=== PATIENT | female | born 1965 | race Caucasian/White ===

== ENCOUNTER 2022-10-22 12:43 | Day surgery (SDC) | payer MEDICARE, SELFPAY ==
[2022-10-21 12:24] VITALS: BMI 24.7
[2022-10-22] VITALS (11 sets, daily range): BP systolic 98–133; BP diastolic 60–87; PULSE 67–87; RESP 16–18; TEMP 36.1–36.6; O2SAT 90–97
[2022-10-22] MEDS: sodium chloride 0.9% 1,000 ML 30 ML IV (10:07)
[2022-10-22] MEDS: midazolam 1 mg/mL INJ 2 mL 2 MG IVP ×2 (13:07→14:48)
--- NOTE | 2022-10-22 14:11 | ANES.PREANE2 ---
Pre-Anesthetic Assessment Height/Weight: Height 1.57 m Weight 61.235 kg Temp Pulse Resp BP Pulse Ox O2 Del Method O2 Flow Rate 97.7 F 87 16 101/70 97 2 10/22/22 09:53 10/22/22 09:53 10/22/22 09:53 10/22/22 09:53 10/22/22 09:53 10/22/22 09:53 10/22/22 09:53 Preop Diagnosis: Biliary dyskinesia Operation Date: 10/22/22 11:00 Proposed Procedures p lap phyllis [id number], K82.8(Not Applicable) - Bill Mock DO Familial anesthetic complications: none Was Beta Reg taken within 24 hours: N/A Was Clonidine taken within 24 hours: N/A Last intake: Intake Last Liquid Date 10/21/22 Last Liquid Time 22:00 Last Solid Date 10/21/22 Last Solid Time 22:00 Social Tobacco and No alcohol Exam alert, oriented x 3 and regular rate & rhythm Airway Submandibular: within normal limits Cervical ROM: within normal limits Mallampati: Class II Dentition: false Pulmonary Chronic Obstructive Pulmonary Disease Home O2 GI Gastroesophageal Reflux Disease Anesthetic Plan ASA status: 3 Anesthesia: General Medications/Allergies Home Medications Medication Instructions Recorded Confirmed Last Taken Type albuterol sulfate 2.5 mg/3 mL 2.5 mg inhalation TID 09/22/22 10/22/22 2 Days Ago History (0.083 %) solution for nebulization ~10/20/22 albuterol sulfate 90 mcg/actuation 2 puff inhalation DAILY 09/22/22 10/22/22 10/22/22 History aerosol inhaler azithromycin 250 mg tablet 1 tab PO DAILY 09/22/22 10/22/22 10/21/22 History benzonatate 100 mg capsule 100 mg PO TID PRN Cough 09/22/22 10/22/22 1 Month Ago History ~09/22/22 cetirizine 10 mg tablet 10 mg PO DAILY PRN allergies 09/22/22 10/22/22 2 Days Ago History ~10/20/22 duloxetine 30 mg capsule,delayed 30 mg PO DAILY 09/22/22 10/22/22 2 Weeks Ago History release (Cymbalta) ~10/08/22 fluticasone fur. 100 mcg-umeclid 1 inh inhalation DAILY 09/22/22 10/22/2210/22/23 History 62.5 mcg-vilant 25 mcg inhalat.powder (Trelegy Ellipta) calcium carbonate 600 mg-vitamin 1 tab PO BID 10/22/22 10/22/22 3 Days Ago History D3 5 mcg (200 unit) tablet ~10/19/22 Allergies Allergy/AdvReac Type Severity Reaction Status Date / Time tetracycline Allergy ALGY-Anaphy Verified 10/22/22 10:08 laxis Current Medications Generic Name Dose Route Start Last Admin Trade Name Freq PRN Reason Stop Dose Admin Sodium Chloride 1,000 mls @ 30 mls/hr 10/22/22 10:00 10/22/22 10:07 Sodium Chloride 0.9% IV 10/23/22 09:59 30 mls/hr .Q24H CITLALI Administration Midazolam HCl 2 mg 10/22/22 09:48 10/22/22 13:07 Midazolam 1 Mg/Ml Inj 2 Ml IVP 2 mg ONCE PRN Administration Preop Anxiety PFSH Anesthesia Medical History Anemia COPD (chronic obstructive pulmonary disease) Hypertension Hypothyroidism Surgical History History of lumpectomy History of tonsillectomy and adenoidectomy History of tubal ligation Data Anesthesia Cardiac Studies: No Data to Display
--- NOTE | 2022-10-22 14:53 | W.PM.OPSUD ---
Surgery/Procedure H&P Update DATE OF PROCEDURE: October 22, 2022 DATE H&P PERFORMED: 09/22/22 H&P UPDATE INFORMATION: I have reviewed H&P completed within last 30 days, I have examined patient prior to procedure and No changes to prior documentation PREOP DIAGNOSIS: Biliary dyskinesia PLANNED PROCEDURE: Operation Date: 10/22/22 11:00 Proposed Procedures p lap phyllis [id number], K82.8(Not Applicable) - Bill Mock DO
[2022-10-22] MEDS: ceFAZolin 2,000 MG in sodium chloride 0.9% (plus) 50 ML 100 MG IV (14:57)
[2022-10-22] MEDS: lidocaine-epi 2% 20 mL INJ INJECTION (15:14)
--- NOTE | 2022-10-22 16:22 | P.OP_ITS ---
Operative Report Date of procedure: October 22, 2022 Pre-op diagnosis: Preop Diagnosis Biliary dyskinesia Post-op diagnosis: same Procedure done: Laparoscopic cholecystectomy Implants: Surgicel x2 Specimens removed/disposition: Gallbladder Surgeon: Dr. Bill Mock DO Anesthesia: General Estimated blood loss (mL): 50 Complications: None apparent Brief History: This is a 57-year-old female who presented to my office and was diagnosed with biliary dyskinesia. Laparoscopic cholecystectomy was indicated. The risks and benefits were explained and documented. Procedure: Patient was wheeled into the operative room and placed on the OR table in a supine position. Abdomen was inspected prepped and draped in usual sterile fashion. Time-out was performed and all present were in agreement. A 15 blade scalp was used to make a stab incision in the left upper quadrant and intra- abdominal insufflation was achieved using a Veress needle. After localizing the tissue incisions were made and a 5 millimeter trocar was placed into the umbilicus as well as 2 in the right upper quadrant. A 12 millimeter trocar was placed in the epigastrium. Gallbladder was grasped and elevated. The triangle of Calot was carefully dissected using blunt dissection and electrocautery until the triangle of Calot clearly identified. The cystic duct was clipped proximally and double clipped distally. The duct was then ligated proximally. The cystic artery was doubly clipped and ligated. The gallbladder was then removed from the liver bed using electrocautery. There was a large venous sinus in the liver that began bleeding. 3 clips were placed but bleeding continued. I used extensive Bovie cautery to further control bleeding. The gallbladder was removed from the abdomen using an Endo-Catch bag through the epigastric incision. The liver bed was inspected and there was still bleeding from the previous area. Surgicel was placed over this area x2. Further electrocautery was performed until there was hemostasis. Surgicel was replaced over the area and left there. The abdomen was irrigated and suctioned. All ports removed. Skin was washed and dried. Incisions were closed with 4-0 Monocryl in a subcuticular interrupted fashion. Skin glue was applied. Patient tolerated the procedure well.
[2022-10-22] MEDS: fentaNYL 50 mcg/mL INJ 2mL IVP (16:35)
--- NOTE | 2022-10-22 17:21 | ANE.PACU2 ---
Inpatient post-anesthesia follow up: Airway intact: Yes Vital signs: Temperature 98 F Pulse Rate 75 Respiratory Rate 16 Blood Pressure 101/67 Pulse Oximetry 93 Oxygen Delivery Me thod Nasal Cannula Oxygen Flow Rate 2 Fraction of Inspir ed Oxygen Hydration adequate: Yes Nausea and vomiting: No Pain level: 3 Mental status: Baseline
[2022-10-22] MEDS: HYDROmorphone 1 mg/mL INJ 1 mL 0.5 MG IVP (17:29)
[2022-10-22] MEDS: HYDROcodone-acetaminophen 10-325 mg Tablet 1 TAB PO (17:41)
== END 2022-10-22 18:00 | disposition home or self-care (01) ==
PROVIDERS: PCP Family Medicine; Visit Provider Surgery
PROC: 0FT44ZZ Resection of Gallbladder, Percutaneous Endoscopic Approach (ICD-10-PCS; CPT 47562; principal; 2022-10-22 10:50)
DX: K82.8 Other specified diseases of gallbladder (principal); J44.9 Chronic obstructive pulmonary disease, unspecified; Z99.81 Dependence on supplemental oxygen; K21.9 Gastro-esophageal reflux disease without esophagitis; Z80.0 Family history of malignant neoplasm of digestive organs
CPT/HCPCS: 47562; 88304; J0690; J1100; J1170; J1885; J2250; J2405; J2704; J2710; J3010; J3490; J7030

== ENCOUNTER → 2022-11-03 10:57 | Outpatient (BNVA) | payer MEDICARE, SELFPAY | PROVIDERS: PCP Family Medicine; Visit Provider Surgery | DX: Z98.890 Other specified postprocedural states (principal); Z90.49 Acquired absence of other specified parts of digestive tract | CPT/HCPCS: 99024 ==

== ENCOUNTER 2022-11-25 06:57 | Day surgery (SDC) | payer MEDICARE, SELFPAY ==
[2022-11-09 07:59] VITALS: BMI 23.0
[2022-11-25 07:18] VITALS: BP 110/80; PULSE 100; RESP 20; TEMP 36.1; O2SAT 96
[2022-11-25] MEDS: sodium chloride 0.9% 1,000 ML 30 ML IV (07:26)
--- NOTE | 2022-11-25 07:48 | ANES.PREANE2 ---
Pre-Anesthetic Assessment Height/Weight: Height 1.6 m Weight 58.967 kg Temp Pulse Resp BP Pulse Ox O2 Del Method O2 Flow Rate 97 F L 100 20 H 110/80 96 Nasal Cannula 2 11/25/22 07:18 11/25/22 07:18 11/25/22 07:18 11/25/22 07:18 11/25/22 07:18 11/25/22 07:18 11/25/22 07:18 Operation Date: 11/25/22 08:30 Proposed Procedures p EGD(Not Applicable) [place] [id number] EGD 23102 Colon Z12.11 Screening Colonoscopy R21.9 GERD(Not Applicable) - Bill Mock DO Familial anesthetic complications: PONV Was Beta Reg taken within 24 hours: N/A Was Clonidine taken within 24 hours: N/A Last intake: Intake Last Liquid Date 11/24/22 Last Liquid Time 22:00 Last Solid Date 11/23/22 Last Solid Time 18:00 Social Tobacco (1ppd) and No alcohol Exam alert and oriented x 3 Airway Submandibular: within normal limits Cervical ROM: within normal limits Mallampati: Class II Dentition: false History/ROS No significant history except as noted Pulmonary Chronic Obstructive Pulmonary Disease (2L NC at home) CV/HEM None reported None reported Hepatic None reported GI Gastroesophageal Reflux Disease Metabolic None reported Musc/skel None reported Neuropsych None reported Anesthetic Plan ASA status: 3 Anesthesia: Anesthesia Evaluation and MAC Medications/Allergies Home Medications Medication Instructions Recorded Confirmed Last Taken Type albuterol sulfate 2.5 mg/3 mL 2.5 mg inhalation TID 09/22/22 11/23/22 11/11/22 History (0.083 %) solution for nebulization albuterol sulfate 90 mcg/actuation 2 puff inhalation DAILY 09/22/22 11/23/22 11/25/22 05:30 History aerosol inhaler azithromycin 250 mg tablet 1 tab PO DAILY 09/22/22 11/23/22 11/24/22 History benzonatate 100 mg capsule 100 mg PO TID PRN Cough 09/22/22 11/23/22 11/24/22 History cetirizine 10 mg tablet 10 mg PO DAILY PRN allergies 09/22/22 11/23/22 11/24/22 History duloxetine 30 mg capsule,delayed 30 mg PO DAILY 09/22/22 11/23/22 11/24/22 History release (Cymbalta) fluticasone fur. 100 mcg-umeclid 1 inh inhalation DAILY 09/22/22 11/23/22 11/25/22 05:30 History 62.5 mcg-vilant 25 mcg inhalat.powder (Trelegy Ellipta) calcium carbonate 600 mg-vitamin 1 tab PO BID 10/22/22 11/23/22 11/23/22 History D3 5 mcg (200 unit) tablet docusate sodium 100 mg capsule 100 mg PO BID #14 caps 10/22/22 11/23/22 11/24/22 Rx (DOK) hydrocodone 10 mg-acetaminophen 1 tab PO Q6H PRN pain 5 days #20 11/03/22 11/23/22 11/11/22 Rx 325 mg tablet tabs Allergies Allergy/AdvReac Type Severity Reaction Status Date / Time tetracycline Allergy ALGY-Anaphy Verified 11/23/22 08:48 laxis Current Medications Generic Name Dose Route Start Last Admin Trade Name Freq PRN Reason Stop Dose Admin Sodium Chloride 1,000 mls @ 30 mls/hr 11/25/22 07:15 11/25/22 07:26 Sodium Chloride 0.9% IV 11/26/22 07:14 30 mls/hr .Q24H CITLALI Administration PFSH Anesthesia Medical History Anemia COPD (chronic obstructive pulmonary disease) Hypertension Hypothyroidism Surgical History History of laparoscopic cholecystectomy History of lumpectomy History of tonsillectomy and adenoidectomy History of tubal ligation Data Anesthesia Cardiac Studies: No Data to Display
--- NOTE | 2022-11-25 07:57 | PM.HP ---
Providers/Chief Complaint Primary Care Provider: Jena Adamson Chief Complaint: Z12.11 R21.9 EGD and colon History of Present Illness Ekaterina Doe is a 57 year old female here for EGD and colonoscopy Medications/Allergies Home Medications Medication Instructions Recorded Confirmed Last Taken Type albuterol sulfate 2.5 mg/3 mL 2.5 mg inhalation TID 09/22/22 11/23/22 11/11/22 History (0.083 %) solution for nebulization albuterol sulfate 90 mcg/actuation 2 puff inhalation DAILY 09/22/22 11/23/22 11/25/22 05:30 History aerosol inhaler azithromycin 250 mg tablet 1 tab PO DAILY 09/22/22 11/23/22 11/24/22 History benzonatate 100 mg capsule 100 mg PO TID PRN Cough 09/22/22 11/23/22 11/24/22 History cetirizine 10 mg tablet 10 mg PO DAILY PRN allergies 09/22/22 11/23/22 11/24/22 History duloxetine 30 mg capsule,delayed 30 mg PO DAILY 09/22/22 11/23/22 11/24/22 History release (Cymbalta) fluticasone fur. 100 mcg-umeclid 1 inh inhalation DAILY 09/22/22 11/23/22 11/25/22 05:30 History 62.5 mcg-vilant 25 mcg inhalat.powder (Trelegy Ellipta) calcium carbonate 600 mg-vitamin 1 tab PO BID 10/22/22 11/23/22 11/23/22 History D3 5 mcg (200 unit) tablet docusate sodium 100 mg capsule 100 mg PO BID #14 caps 10/22/22 11/23/22 11/24/22 Rx (DOK) hydrocodone 10 mg-acetaminophen 1 tab PO Q6H PRN pain 5 days #20 11/03/22 11/23/22 11/11/22 Rx 325 mg tablet tabs Allergies Allergy/AdvReac Type Severity Reaction Status Date / Time tetracycline Allergy ALGY-Anaphy Verified 11/23/22 08:48 laxis PFSH Acute PFSH: Medical History Anemia COPD (chronic obstructive pulmonary disease) Hypertension Hypothyroidism Surgical History History of laparoscopic cholecystectomy History of lumpectomy History of tonsillectomy and adenoidectomy History of tubal ligation Vitals/I&O/Wt Last Vital Signs Temp 97 F L 11/25/22 07:18 Pulse 100 11/25/22 07:18 Resp 20 H 11/25/22 07:18 BP 110/80 11/25/22 07:18 Pulse Ox 96 11/25/22 07:18 O2 Del Method Nasal Cannula 11/25/22 07:18 O2 Flow Rate 2 11/25/22 07:18 A&P Assessment and plan (1) Colon cancer screening: (2) GERD (gastroesophageal reflux disease): Plan EGD Screening colonoscopy The risks and benefits of the procedure, including bleeding, infection, intestinal perforation requiring surgery, missed lesion were explained to the patient. The patient is understanding of the risks and wishes to proceed. Attestations Medical Necessity Statement*: Home Coding Level of Care Code Acute Code for Chg Fwd Diagnoses Colon cancer screening Z12.11 GERD (gastroesophageal reflux disease) K21.9
[2022-11-25 08:28] VITALS: BP 89/61; PULSE 71; RESP 20; TEMP 36.3; O2SAT 97
--- NOTE | 2022-11-25 08:39 | ANE.PACU2 ---
Inpatient post-anesthesia follow up: Airway intact: Yes Vital signs: Temperature 97.3 F Pulse Rate 71 Respiratory Rate 20 Blood Pressure 89/61 Pulse Oximetry 97 Oxygen Delivery Me thod Nasal Cannula Oxygen Flow Rate 2 Fraction of Inspir ed Oxygen Hydration adequate: Yes Nausea and vomiting: No Pain level: 1 Mental status: Baseline
[2022-11-25 08:41] VITALS: BP 94/67; PULSE 76; RESP 16; O2SAT 98
== END 2022-11-25 09:02 | disposition home or self-care (01) ==
PROVIDERS: PCP Family Medicine; Visit Provider Surgery
PROC: 0DJ08ZZ Inspection of Upper Intestinal Tract, Via Natural or Artificial Opening Endoscopic (ICD-10-PCS; CPT 43235; principal; 2022-11-25 08:30)
PROC: 0DJD8ZZ Inspection of Lower Intestinal Tract, Via Natural or Artificial Opening Endoscopic (ICD-10-PCS; CPT 45378; 2022-11-25 08:30)
DX: Z12.11 Encounter for screening for malignant neoplasm of colon (principal); K29.50 Unspecified chronic gastritis without bleeding; F17.210 Nicotine dependence, cigarettes, uncomplicated; J44.9 Chronic obstructive pulmonary disease, unspecified; K21.9 Gastro-esophageal reflux disease without esophagitis; I10 Essential (primary) hypertension; E03.9 Hypothyroidism, unspecified; Z79.891 Long term (current) use of opiate analgesic; K44.9 Diaphragmatic hernia without obstruction or gangrene; Z80.0 Family history of malignant neoplasm of digestive organs; D12.8 Benign neoplasm of rectum
CPT/HCPCS: 43239; 45385; 88305; 88342; J2704; J7030

== ENCOUNTER 2022-12-20 20:55 | Emergency (ER) | payer MEDICARE, SELFPAY ==
[2022-12-20 20:59] VITALS: BP 118/70; PULSE 108; RESP 16; TEMP 36.7; O2SAT 88; BMI 23.0
--- NOTE | 2022-12-20 21:05 | ED_ITS ---
HPI - SOB/Dyspnea General: Chief Complaint: Shortness of Breath/Dyspnea Stated Complaint: SOB Time Seen by Provider: 12/20/22 21:05 History of Present Illness: HPI Narrative: Ms. Doe is a 57-year-old lady with history of COPD and chronic hypoxic respiratory failure on 4 L at baseline. Reports 1 week history of increased shortness of breath, baseline cough, denies fevers. She has had oxygen saturations in the 80s despite turning up her oxygen to 4 L. Additionally she has had some chest discomfort which is tightness and sharp pain around the middl e of her chest with radiation to the back. Course is worsening. Intensity is moderate to severe. No other specific changes in health, exacerbating, or alleviating factors identified. Pertinent past history: COPD Onset (ago): week(s) Timing: progressively worsening Severity: moderate Exacerbating factors: lying flat and exertion Known history of: COPD Associated symptoms: Reports chest pain and cough Review of Systems General: Reports: 10 or more systems reviewed and unremarkable except in HPI and below Card: Reports: chest pain PFSH ED PFSH: Medical History Anemia COPD (chronic obstructive pulmonary disease) Hypertension Hypothyroidism Surgical History History of laparoscopic cholecystectomy History of lumpectomy History of tonsillectomy and adenoidectomy History of tubal ligation Physical Exam Const: COMMON NORMALS: alert GENERAL APPEARANCE: cooperative and well developed HENMT: COMMON NORMALS: normocephalic and atraumatic HEAD & SCALP: normocephalic and atraumatic Eye: COMMON NORMALS: conjunctivae normal CONJUNCTIVA: Yes conjunctivae normal SCLERA: sclerae normal Neck/C-Spine: COMMON NORMALS: supple GENERAL: Yes trachea midline Resp: EFFORT & INSPECTION: Yes able to speak in complete sentences AUSCULTATION: diminished lung sounds on the left Cardio: COMMON NORMALS: regular rhythm RATE: tachycardic RHYTHM: regular rhythm GI: COMMON NORMALS: Soft to palpation PALPATION: Yes Soft to palpation and No Tenderness to palpation present (GI) Extremity: GENERAL: Yes normal exam except as noted and No edema Neuro: COMMON NORMALS: moves all extremities SENSORIUM/ORIENTATION: Yes alert and No Orientation impaired Psych: COMMON NORMALS: mental status grossly normal and Normal thought process present THOUGHT PROCESS: Normal thought process present Course Vital Signs: Vital signs: Vital Signs Temperature 98.0 F 12/20/22 20:59 Pulse Rate 63 12/21/22 03:03 Respiratory Rate 23 H 12/21/22 03:03 Blood Pressure 109/77 12/21/22 03:03 Pulse Oximetry 96 12/21/22 03:03 Oxygen Delivery Me thod Nasal Cannula 12/21/22 02:05 Oxygen Flow Rate 4 12/21/22 02:05 MDM - SOB/Dyspnea Medical Decision Making 57-year-old lady with history of COPD presenting to the emergency department for worsening respiratory status. Patient now requiring 4 L oxygen as opposed to baseline of rare overnight use. She does have significantly diminished lung sounds on the left though no evidence of pneumothorax on initial clinical exam. EKG demonstrates sinus rhythm with normal axis and intervals, no STEMI. Labs notable for no leukocytosis, mild hemoconcentration, no significant metabolic abnormalities. Initial lactic acid was elevated however repeat was normal without volume resuscitation which leads me to believe that this was erroneous. Patient's clinical history and exam is not consistent with sepsis. Rapid COVID testing is negative. BNP is minimally elevated. Chest x-ray demonstrates significant left-sided chest abnormalities. My interpretation appearance does not fit with large effusion and therefore requires further delineation via CT imaging. CT demonstrates significant left- sided volume loss with atelectasis versus infiltrate and small pleural effusion. There does appear to be evidence of endobronchial blockage or narrowing which requires further evaluation. We do not have pulmonology available for bronchoscopy. Patient therefore requires transfer. Antibiotics ordered. Most likely etiology of patient's symptoms is multifactorial including exacerbation of COPD, likely mucous plugging, effusion, possible infection. The results of ED evaluation were discussed with the patient including plan for transfer due to requirement for level of care not available if discharged to prevent significant worsening/deterioration. Patient agreeable with plan. Discussed with hospitalist service at [facility] in [place] who was agreeable to admit patient. [facility] did not have beds available. I recommended and offered patient EMS transfer which she declined in favor of transfer via private vehicle. Medical Records I reviewed the patient's medical records. Lab Data I reviewed the patient's lab results. 12/20/22 21:48 12/20/22 23:45 Labs/Radiology: Radiology Impressions Chest X-Ray 12/20/22 21:14 IMPRESSION: Moderate to large left pleural effusion with left lung volume loss and airspace opacification, chest CT could further characterize this. Chest CTA 12/20/22 22:07 IMPRESSION: 1. Left lung volume loss with a small left pleural effusion and diffuse left lung atelectasis versus infiltrate. 2. Left proximal bronchial opacification may reflect mucoid impaction, consider correlation with bronchoscopy. 3. Scattered prominent mediastinal lymph nodes measuring up to 11 mm, nonspecific. 4. Several low-density hepatic lesions suggestive of cysts. 5. Fluid density structure in the gallbladder fossa suggestive of the presence of a gallbladder, however surgical clips are also seen in this region suggesting there may have been a cholecystectomy with a seroma in the gallbladder fossa, please correlate with history. 6. Small hiatal hernia. 7. Emphysematous changes. 8. Right kidney cyst, negative for follow-up advised. 9. Negative for pulmonary embolus. COMMENTS: In the absence of a history or active diagnosis of lung cancer, it is recommended that this patient with emphysema be evaluated for enrollment in a low dose CT lung cancer screening program. Laboratory Results WBC 8.3 10^3/uL (4.0-10.0) 12/20/22 21:48 RBC 4.89 10^6/uL (4.1-5.3) 12/20/22 21:48 Hgb 15.5 g/dL (11.5-15.3) H 12/20/22 21:48 Hct 47.9 % (37.0-47.0) H 12/20/22 21:48 MCV 98.0 fl (81-99) 12/20/22 21:48 MCH 31.7 pg (28.0-34.0) 12/20/22 21:48 MCHC 32.4 g/dL (30.0-36.0) 12/20/22 21:48 RDW 12.6 % (12.1-15.1) 12/20/22 21:48 Plt Count 243 10^3/cmm (130-400) 12/20/22 21:48 MPV 9.7 fL (7.4-10.4) 12/20/22 21:48 Neut % (Auto) 84.6 % 12/20/22 21:48 Lymph % (Auto) 9.1 % 12/20/22 21:48 [place] % (Auto) 5.6 % 12/20/22 21:48 Eos % (Auto) 0.0 % 12/20/22 21:48 Baso % (Auto) 0.2 % 12/20/22 21:48 Neut # (Auto) 7.03 10^3/uL (1.8-7.7) 12/20/22 21:48 Lymph # (Auto) 0.8 10^3/uL (0.8-4.8) 12/20/22 21:48 [place] # (Auto) 0.5 10^3/uL (0.2-0.9) 12/20/22 21:48 Eos # (Auto) 0.0 10^3/uL (0.0-0.8) 12/20/22 21:48 Baso # (Auto) 0.0 10^3/uL (0.0-0.1) 12/20/22 21:48 Nucleated RBC % (auto) 0 % 12/20/22 21:48 Nucleated RBCs # 0.0 /100WBC 12/20/22 21:48 Sodium 140 mmol/L (136-145) 12/20/22 23:45 Potassium 4.0 mmol/L (3.5-5.1) 12/20/22 23:45 Chloride 106 mmol/L (98-107) 12/20/22 23:45 Carbon Dioxide 27 mmol/L (22-29) 12/20/22 23:45 Anion Gap 11.0 (5-19) 12/20/22 23:45 BUN 10 mg/dL (6-20) 12/20/22 23:45 Creatinine 0.7 mg/dL (0.5-0.9) 12/20/22 23:45 GFR Calculation 85.6 mL/min (90-130) L 12/20/22 23:45 Glucose 104 mg/dL (65-115) 12/20/22 23:45 Calculated Osmolality 289 mOsm/kg (285-295) 12/20/22 23:45 Lactic Acid 2.5 mmol/L (0.5-2.2) H 12/20/22 21:48 Lactic Acid (Sepsis) 1.2 mmol/L (0.5-2.2) 12/20/22 00:32 Calcium 8.6 mg/dL (8.5-10.5) 12/20/22 23:45 Total Bilirubin 0.2 mg/dL (0.15-1.2) 12/20/22 23:45 AST 9 U/L (0-32) 12/20/22 23:45 ALT 6 U/L (0-33) 12/20/22 23:45 Alkaline Phosphatase 67 U/L (35-105) 12/20/22 23:45 Troponin T Baseline 7 ng/L (0-10) 12/20/22 21:48 Troponin T 120 Minute 8.01 ng/L (0-10) 12/20/22 23:45 Delta Troponin T 1.01 ABS# (0-10) 12/20/22 23:45 NT-Pro-B Natriuret Pep 473 pg/mL (0-125) H 12/20/22 23:45 Total Protein 5.4 g/dL (6.6-8.7) L 12/20/22 23:45 Albumin 3.5 g/dL (3.5-5.2) 12/20/22 23:45 Globulin 1.9 g/dL (1.3-4.6) 12/20/22 23:45 Lipase 22 U/L (13-60) 12/20/22 23:45 SARS-CoV-2 Ag (Rapid) Negative (Negative) 12/21/22 01:15 Discharge Plan Discharge Patient Disposition: Xfer Short-Term Hosp Clinical Impression: Shortness of breath, Acute exacerbation of chronic obstructive airways disease, Bronchial obstruction Condition: Stable Referrals: Jena Adamson [Primary Care Provider] - Coding Level of Care Code ED [employer] for Dorisg Bebo
--- NOTE | 2022-12-20 21:14 | XRR_ITS ---
PROCEDURE INFORMATION: Exam: XR Chest Exam date and time: 12/20/2022 8:46 PM Age: 57 years old Clinical indication: Shortness of breath; Additional info: SHAYY, ann TECHNIQUE: Imaging protocol: Radiologic exam of the chest. Views: 1 view. COMPARISON: CR XR chest 1V [id number] 06/26/2018 9:31 AM FINDINGS: Lungs: Moderate to large left pleural effusion with left lung volume loss and airspace opacification, chest CT could further characterize this. Pleural spaces: See Lungs finding. Heart/Mediastinum: Unremarkable. No cardiomegaly. Bones/joints: Unremarkable. XR/XR chest 1V portable [id number] IMPRESSION: Moderate to large left pleural effusion with left lung volume loss and airspace opacification, chest CT could further characterize this.
[2022-12-20 21:35] VITALS: BP 117/69; RESP 21; O2SAT 95
--- NOTE | 2022-12-20 21:45 | ECG_ITS ---
[facility] Test Date: 2022-12-20 Pat Name: Ekaterina Doe Department: Room: Gender: Female Pharmacognosy Teacher: : 1965 Requested By: Reji Cotto Order Number: [id number] Maryann MD: Kvng Nova M.D. Measurements Intervals [place] Rate: 85 P: 56 DE: 156 QRS: 22 QRSD: 79 T: 66 QT: 357 QTc: 427 Interpretive Statements SINUS RHYTHM LOW QRS VOLTAGE IN PRECORDIAL LEADS [QRS DEFLECTION < 1.0 mV IN CHEST LEADS] MODERATE ST DEPRESSION [0.05+ mV ST DEPRESSION] Compared to ECG 06/26/2018 09:47:18 Low QRS voltage now present ST (T wave) deviation now present Electronically Signed On 12-21-2022 23:29:46 CDT by Kvng Nova M.D. [email or web address]
[2022-12-20 21:59] LABS: Basophils % 0.2 %; Hematocrit 47.9 % (37.0-47.0); Hemoglobin 15.5 g/dL (11.5-15.3); Lymphocytes # 0.8 10^3/uL (0.8-4.8); Lymphocytes % 9.1 %; Mean Corpuscular HGB Conc 32.4 g/dL (30.0-36.0); Mean Corpuscular Hemoglobin 31.7 pg (28.0-34.0); Mean Platelet Volume 9.7 fL (7.4-10.4); Monocytes # 0.5 10^3/uL (0.2-0.9); Monocytes % 5.6 %; Neutrophils # 7.03 10^3/uL (1.8-7.7); Neutrophils % 84.6 %; Nucleated Red Blood Cells % 0 %; Platelet Count 243 10^3/cmm (130-400); Red Blood Count 4.89 10^6/uL (4.1-5.3); Red Cell Distribution Width 12.6 % (12.1-15.1); White Blood Count 8.3 10^3/uL (4.0-10.0)
--- NOTE | 2022-12-20 22:07 | CTR_ITS ---
PROCEDURE INFORMATION: Exam: CTA Chest With Contrast Exam date and time: 12/20/2022 11:32 PM Age: 57 years old Clinical indication: Shortness of breath; Additional info: SOB, worse o2 req, abnormal cxr TECHNIQUE: Imaging protocol: Computed tomographic angiography of the chest with contrast. Exam focused on the arteries. 3D rendering (Not supervised by radiologist): MIP and/or 3D reconstructed images were created by the technologist. Radiation optimization: All CT scans at this facility use at least one of these dose optimization techniques: automated exposure control; mA and/or kV adjustment per patient size (includes targeted exams where dose is matched to clinical indication); or iterative reconstruction. Contrast material: OMNI 350; Contrast volume: 70 ml; Contrast route: INTRAVENOUS (IV); REPORTING DATA: Count of CT and Cardiac NM exams in prior 12 months: This patient has received 0 known CTs and 0 known cardiac nuclear medicine studies in the 12 months prior to the current study. COMPARISON: CR (CHEST, ) 12/20/2022 8:46 PM RADIATION DOSE METRICS: Total DLP (mGy-cm): 307.76 FINDINGS: Pulmonary arteries: Normal. No pulmonary emboli. Aorta: Unremarkable. No aortic aneurysm. No aortic dissection. Lungs: Left lung volume loss with a small left pleural effusion and diffuse left lung atelectasis versus infiltrate. Left proximal bronchial opacification may reflect mucoid impaction, consider correlation with bronchoscopy. Emphysematous changes. Pleural spaces: See Lungs finding. Heart: Unremarkable. No cardiomegaly. No pericardial effusion. Lymph nodes: Scattered prominent mediastinal lymph nodes measuring up to 11 mm, nonspecific. Diaphragm: Small hiatal hernia. Liver: Several low-density hepatic lesions suggestive of cysts. Bones/joints: Unremarkable. No acute fracture. Soft tissues: Fluid density structure in the gallbladder fossa suggestive of the presence of a gallbladder, however surgical clips are also seen in this region suggesting there may have been a cholecystectomy with a seroma in the gallbladder fossa, please correlate with history. Right kidney cyst, negative for follow-up advised. CT/CT angio chest PE protcl [id number] IMPRESSION: 1. Left lung volume loss with a small left pleural effusion and diffuse left lung atelectasis versus infiltrate. 2. Left proximal bronchial opacification may reflect mucoid impaction, consider correlation with bronchoscopy. 3. Scattered prominent mediastinal lymph nodes measuring up to 11 mm, nonspecific. 4. Several low-density hepatic lesions suggestive of cysts. 5. Fluid density structure in the gallbladder fossa suggestive of the presence of a gallbladder, however surgical clips are also seen in this region suggesting there may have been a cholecystectomy with a seroma in the gallbladder fossa, please correlate with history. 6. Small hiatal hernia. 7. Emphysematous changes. 8. Right kidney cyst, negative for follow-up advised. 9. Negative for pulmonary embolus. COMMENTS: In the absence of a history or active diagnosis of lung cancer, it is recommended that this patient with emphysema be evaluated for enrollment in a low dose CT lung cancer screening program.
[2022-12-20] MEDS: ipratropium-albuterol 3 mL Neb INHALATION (22:12)
[2022-12-20 22:14] VITALS: PULSE 80; RESP 24; O2SAT 91
[2022-12-20 22:16] LABS: Lactic Sepsis W/Reflex 2.5 mmol/L (0.5-2.2)
[2022-12-20 22:18] LABS: Troponin(5th) Baseline 7 ng/L (0-10)
[2022-12-20 22:19] VITALS: PULSE 82; RESP 22; O2SAT 90
--- NOTE | 2022-12-20 23:04 | ECG_ITS ---
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 Measurements Intervals Rawlings Rate: 66 P: 39 LA: 138 QRS: 11 QRSD: 93 T: 75 QT: 413 QTc: 434 Interpretive Statements SINUS RHYTHM LOW QRS VOLTAGE IN PRECORDIAL LEADS [QRS DEFLECTION < 1.0 mV IN CHEST LEADS] Compared to ECG 12/20/2022 21:45:30 ST (T wave) deviation no longer present Electronically Signed On 12-22-2022 8:34:28 CDT by Kvng Nova M.D. [id number]
[2022-12-20 23:05] VITALS: BP 100/69; PULSE 61; O2SAT 95
[2022-12-20 23:44] LABS: Reflex Lactate Order REFLEX LACTIC ORDERD
[2022-12-21 00:32] LABS: Alanine Aminotransferase 6 U/L (0-33); Albumin Level 3.5 g/dL (3.5-5.2); Alkaline Phosphatase 67 U/L (35-105); Blood Urea Nitrogen 10 mg/dL (6-20); Calcium 8.6 mg/dL (8.5-10.5); Carbon Dioxide 27 mmol/L (22-29); Chloride 106 mmol/L (98-107); Globulin 1.9 g/dL (1.3-4.6); Glomerular Filtration Rate 85.6 mL/min (90-130); Glucose 104 mg/dL (65-115); Lipase 22 U/L (13-60); NT Pro B Type Natriuretic Pept 473 pg/mL (0-125); Osmolality Calculated 289 mOsm/kg (285-295); Sodium 140 mmol/L (136-145); Total Bilirubin 0.2 mg/dL (0.15-1.2); Total Protein 5.4 g/dL (6.6-8.7)
[2022-12-21 00:40] LABS: Aspartate Amino Transferase 9 U/L (0-32)
[2022-12-21 00:43] LABS: Troponin 5 2HR 8.01 ng/L (0-10)
[2022-12-21 01:02] LABS: Troponin 5 2HR Delta 1.01 ABS# (0-10)
[2022-12-21 01:04] LABS: Lactic Acid level (Lactate) 1.2 mmol/L (0.5-2.2)
[2022-12-21] MEDS: cefTRIAXone 1,000 MG in sodium chloride 0.9% (plus) 50 ML 100 MG IV (01:57)
[2022-12-21] MEDS: azithromycin 500 MG in sodium chloride 0.9% 250 ML 250 MG IV (01:59)
[2022-12-21 02:05] VITALS: PULSE 58; RESP 21; O2SAT 95
[2022-12-21 02:09] LABS: SARS Covid-2 Antigen Negative (Negative)
[2022-12-21 03:03] VITALS: BP 109/77; PULSE 63; RESP 23; O2SAT 96
[2022-12-21] MEDS: iohexol 350 mg/mL 500 mL Btl (per mL) IV (04:45)
== END 2022-12-21 03:05 | disposition short-term general hospital (02) ==
PROVIDERS: Emergency Provider Emergency Medicine; PCP Family Medicine
DX: J44.1 Chronic obstructive pulmonary disease with (acute) exacerbation (principal); J98.09 Other diseases of bronchus, not elsewhere classified; I10 Essential (primary) hypertension; Z99.81 Dependence on supplemental oxygen
CPT/HCPCS: 36415; 71045; 71275; 80053; 83605; 83690; 83880; 84484; 85025; 87040; 87426; 93005; 94640; 96365; 96367; 99285; J0456; J0696; J7050; Q9967

== ENCOUNTER → 2022-12-30 16:25 | Outpatient (BNVA) | payer MEDICARE, SELFPAY | PROVIDERS: PCP Family Medicine; Visit Provider Surgery | DX: D12.8 Benign neoplasm of rectum (principal) | CPT/HCPCS: 99212 ==

== ENCOUNTER 2023-04-25 11:49 | Emergency (ER) | payer MEDICARE, SELFPAY ==
[2023-04-25 11:52] VITALS: BP 100/73; PULSE 88; RESP 16; TEMP 36.6; O2SAT 91
--- NOTE | 2023-04-25 11:59 | XRR_ITS ---
PROCEDURE INFORMATION: Exam: XR Right Forearm Exam date and time: 04/25/2023 12:18 PM Age: 57 years old Clinical indication: Pain and injury or trauma; Lower or forearm and upper arm; Right; Injury details: RT arm pain post fall; Patient HX: RT upper arm/elbow/wrist pain post fall; PT states that she had a previous FX of RT wrist but no surgical intervention was required. ; Additional info: RT arm pain post fall; PT states that she had a previous FX of RT wrist but no surgical intervention was required. TECHNIQUE: Imaging protocol: Radiologic exam of the right forearm. Views: 2 views. COMPARISON: No relevant prior studies available. FINDINGS: Bones/joints: Normal. Soft tissues: Normal. XR/XR forearm RT 2V [id number] IMPRESSION: No acute findings.
--- NOTE | 2023-04-25 11:59 | XRR_ITS ---
PROCEDURE INFORMATION: Exam: XR Right Humerus Exam date and time: 04/25/2023 12:10 PM Age: 57 years old Clinical indication: Pain and injury or trauma; Other: RT arm pain; Upper arm and elbow and wrist; Right; Injury details: RT upper arm/elbow/wrist pain post fall; PT states that she had a previous FX of RT wrist but no surgical intervention was required. TECHNIQUE: Imaging protocol: Radiologic exam of the right humerus. Views: 2 or more views. COMPARISON: CR (CHEST, ) 12/20/2022 8:46 PM FINDINGS: Bones/joints: Normal. Soft tissues: Normal. XR/[place] [id number] IMPRESSION: No acute findings.
--- NOTE | 2023-04-25 12:00 | ED_ITS ---
HPI - Extremity Problem General: Chief complaint: Extremity Injury, Upper Stated complaint: fall/right arm injury Time Seen by Provider: 04/25/23 11:54 Source: patient Mode of arrival: ambulatory Limitations: no limitations History of Present Illness: This patient comes to our emergency department by private vehicle because of a fall injury. She states that she was walking from the restaurant to her car last evening and missed stepped on uneven pavement fell forward and landing predominantly on her right arm and elbow. She states that she did not injure anything else did not suffer loss of conscious etc. She states that this morning her right arm particular in her right elbow is sore and swollen and she cannot fully extend her arm. 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 She denies any other injury. She is right-handed. Location: right and upper extremity Associated symptoms: Deny chest pain or fever(s) Review of Systems Const: Denies: fever(s) Eyes: Denies: change in vision Card: Denies: chest pain, palpitations, syncope or pre-syncope GI: Denies: nausea or vomiting Musc: Denies: neck pain or back pain Neuro: Denies: headache(s), numbness in extremities or weakness in extremities Valentín/Lymph: Denies: easy bruising or easy bleeding [facility] ED PFSH: Medical History Anemia COPD (chronic obstructive pulmonary disease) Hypertension Hypothyroidism Surgical History History of laparoscopic cholecystectomy History of lumpectomy History of tonsillectomy and adenoidectomy History of tubal ligation Physical Exam Narrative: EXAM NARRATIVE: She is alert no acute distress answers questions appropriately in a goal- directed fashion. Const: COMMON NORMALS: no acute distress, average body habitus and patient oriented x3 HENMT: COMMON NORMALS: normocephalic, atraumatic and Normal nasal mucous membranes and turbinates present HEAD & SCALP: normocephalic and atraumatic NOSE: Normal nasal mucous membranes and turbinates present Eye: COMMON NORMALS: Equal, round and reactive pupils present and EOMs intact bilaterally PUPIL: Yes Equal, round and reactive pupils present Neck/C-Spine: COMMON NORMALS: full ROM CERVICAL SPINE: No Cervical spine tenderness, No step off deformity, No Paracervical muscle tenderness, No Paracervical spasm and No Trapezius muscle tenderness Chest: COMMONS NORMALS: normal inspection of the chest Resp: COMMON NORMALS: normal respiratory effort EFFORT & INSPECTION: Yes able to speak in complete sentences Cardio: COMMON NORMALS: Peripheral pulses 2+ throughout PERIPHERAL PULSES: Peripheral pulses 2+ throughout : COMMON NORMALS: Yes no CVA tenderness BLADDER/KIDNEY EXAM: Yes no CVA tenderness Back/Pelvis: COMMON NORMALS: no CVA tenderness, thoracic and lumbar spine normal to inspection, no thoracic nor lumbar tenderness, thoraco-lumbar ROM normal and straight leg raise negative bilaterally Extremity: COMMON NORMALS: capillary refill normal and no calf tenderness NARRATIVE EXTREMITY EXAM: Examination of her extremities reveal no remarkable findings other than the right upper extremity. She has no tenderness at the glenohumeral joint. Has some mild tenderness at the distal humerus. She also has reduced extension at the elbow joint with some localized swelling in the olecranon area. No deformity noted. She is able to pronate and supinate. She has some tenderness to outpatient of the wrist but no deformity. She has otherwise an intact neurovascular status of the right upper extremity. RIGHT UPPER EXTREMITY: Yes elbow joint and Yes wrist EXTREMITY IMAGE (BACK): 1. Swelling 2. Tenderness Neuro: COMMON NORMALS: patient oriented x3 Psych: COMMON NORMALS: mental status grossly normal Skin: COMMON NORMALS: no rashes or lesions noted, no wounds and turgor normal GENERAL SKIN EXAM: no rashes or lesions noted and turgor normal Course Reevaluation(s): Reevaluation #1: Reviewed radiograph results, plan of care as well as follow-up if not improved in next 3 to 5 days. 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 Clinical examination revealed some mild swelling over the olecranon and reduced ability to get full extension at the elbow but she was able to pronate and supinate. There was no other evidence of injury other than some mild tenderness over the distal forearm. Radiographs were reassuring at this time without any evidence of fracture dislocation etc. Certainly does not appear to be an acute fracture initially. We will go and place the elbow in a sling for rest with instructions on ranging several times a day, ice massage, close follow-up if not continuously improving over the next 3 to 5 days. She voiced understanding and is stable to be discharged. Lab Data I reviewed the patient's lab results. Radiology Impressions Forearm X-Ray 04/25/23 11:59 IMPRESSION: No acute findings. Humerus X-Ray 04/25/23 11:59 IMPRESSION: No acute findings. All radiology interpretation(s) finalized by discharge Discharge Plan Discharge Patient Disposition: Home Clinical Impression: Injury of right forearm Condition: Stable Prescriptions: No Action albuterol sulfate 90 mcg/actuation HFA aerosol inhaler 2 puff inhalation DAILY Trelegy Ellipta 100-62.5-25 mcg blister with device 1 inh inhalation DAILY albuterol sulfate 2.5 mg /3 mL (0.083 %) solution for nebulization 2.5 mg inhalation TID duloxetine [Cymbalta] 30 mg capsule,delayed release(DR/EC) 30 mg PO DAILY cetirizine 10 mg tablet 10 mg PO DAILY PRN (Reason: allergies) pantoprazole 40 mg tablet,delayed release (DR/EC) 40 - 80 mg PO DAILY PRN (Reason: Acid Reflux) calcium carbonate-vitamin D3 600 mg-5 mcg (200 unit) Tablet 1 tab PO BID docusate sodium [DOK] 100 mg capsule 100 mg PO BID Qty: 14 0RF Discharge Orders: Discharge ED (Routine); Ordered 04/25/23 Ordered By: Herson Davidson Referrals: Jena Adamson [Primary Care Provider] - Discharge Diet: Usual diet Discharge Activity: Increase activity as tolerated Patient Instructions: Opioid Safety, Pain Management Activity Restrictions/Additional Instructions: As we discussed your initial x-rays did not show any evidence of a broken bone. We have provided a sling to use to help rest your right arm and elbow. We recommend using ice or cool packs to the area for 10 to 15 minutes 3-4 times a day for the next several days. We also recommend removing your arm from the sling and doing range of motion to pain tolerance. If you are not continue to improve and back to relatively normal range of motion and pain-free in the next 3-5 days or worsening at any time return to this emergency department for reevaluation. Coding Level of Care Code ED [employer] for [employer]
== END 2023-04-25 13:15 | disposition home or self-care (01) ==
PROVIDERS: Emergency Provider Emergency Medicine; PCP Family Medicine
DX: S59.911A Unspecified injury of right forearm, initial encounter (principal); J44.9 Chronic obstructive pulmonary disease, unspecified; I10 Essential (primary) hypertension; W01.0XXA Fall on same level from slipping, tripping and stumbling without subsequent striking against object, initial encounter; Y92.481 Parking lot as the place of occurrence of the external cause
CPT/HCPCS: 73060; 73090; 99283

== ENCOUNTER 2023-06-30 08:58 | Day surgery (SDC) | payer MEDICARE, SELFPAY ==
[2023-06-30 09:24] VITALS: BP 105/78; PULSE 89; RESP 20; TEMP 36.6; O2SAT 97; BMI 23.0
[2023-06-30] MEDS: sodium chloride 0.9% 1,000 ML 30 ML IV (09:29)
--- NOTE | 2023-06-30 10:12 | ANES.PREANE2 ---
Pre-Anesthetic Assessment Height/Weight: Height 1.6 m Weight 58.967 kg Temp Pulse Resp BP Pulse Ox O2 Del Method O2 Flow Rate 97.9 F 89 20 H 105/78 97 Nasal Cannula 3 06/30/23 09:24 06/30/23 09:24 06/30/23 09:24 06/30/23 09:24 06/30/23 09:24 06/30/23 09:24 06/30/23 09:24 Preop Diagnosis: Screening Operation Date: 06/30/23 09:45 Proposed Procedures p Colonoscopy 03170,D12.8(Not Applicable) - Bill Mock DO Familial anesthetic complications: None Was Beta Reg taken within 24 hours: N/A Was Clonidine taken within 24 hours: N/A Last intake: Intake Last Liquid Date 06/29/23 Last Liquid Time 22:00 Last Solid Date 06/28/23 Last Solid Time 18:00 Social Alcohol (Social) and Tobacco .5-1 pack(s) per day Exam alert, oriented x 3 and regular rate & rhythm Diminished BBS Airway Submandibular: within normal limits Cervical ROM: within normal limits Mallampati: Class III Dentition: false History/ROS No significant history except as noted and No significant complaints Pulmonary Chronic Obstructive Pulmonary Disease, Cough and Exertional Dyspnea Wears 3L O2 all the time Medications/Allergies Home Medications Medication Instructions Recorded Confirmed Last Taken Type albuterol sulfate 2.5 mg/3 mL 2.5 mg inhalation TID 09/22/22 06/28/23 06/29/23 History (0.083 %) solution for nebulization albuterol sulfate 90 mcg/actuation 2 puff inhalation DAILY 09/22/22 06/28/23 06/30/23 History aerosol inhaler cetirizine 10 mg tablet 10 mg PO DAILY PRN allergies 09/22/22 06/28/23 06/29/23 History duloxetine 30 mg capsule,delayed 30 mg PO DAILY 09/22/22 06/28/23 06/29/23 History release (Cymbalta) fluticasone fur. 100 mcg-umeclid 1 inh inhalation DAILY 09/22/22 06/28/23 06/29/23 History 62.5 mcg-vilant 25 mcg inhalat.powder (Trelegy Ellipta) calcium carbonate 600 mg-vitamin 1 tab PO BID 0306/28/23 06/29/23 History D3 5 mcg (200 unit) tablet pantoprazole 40 mg tablet,delayed 40 - 80 mg PO DAILY PRN Acid Reflux 04/25/23 06/28/23 06/29/23 History release Allergies Allergy/AdvReac Type Severity Reaction Status Date / Time tetracycline Allergy ALGY-Anaphy Verified 04/25/23 11:56 laxis Current Medications Generic Name Dose Route Start Last Admin Trade Name Freq PRN Reason Stop Dose Admin Sodium Chloride 1,000 mls @ 30 mls/hr 06/30/23 09:15 06/30/23 09:29 Sodium Chloride 0.9% IV 07/01/23 09:14 30 mls/hr .Q24H CITLALI Administration PFSH Anesthesia Medical History Anemia COPD (chronic obstructive pulmonary disease) Hypertension Hypothyroidism Surgical History History of laparoscopic cholecystectomy History of lumpectomy History of tonsillectomy and adenoidectomy History of tubal ligation Data Anesthesia Cardiac Studies: No Data to Display
--- NOTE | 2023-06-30 10:21 | ANES.PREANE2 ---
Pre-Anesthetic Assessment Height/Weight: Height 1.6 m Weight 58.967 kg Temp Pulse Resp BP Pulse Ox O2 Del Method O2 Flow Rate 97.9 F 89 20 H 105/78 97 Nasal Cannula 3 06/30/23 09:24 06/30/23 09:24 06/30/23 09:24 06/30/23 09:24 06/30/23 09:24 06/30/23 09:24 06/30/23 09:24 Preop Diagnosis: Screening Operation Date: 06/30/23 09:45 Proposed Procedures p Colonoscopy 80042,D12.8(Not Applicable) - Bill Mock, DO Was Beta Reg taken within 24 hours: N/A Was Clonidine taken within 24 hours: N/A Last intake: Intake Last Liquid Date 06/29/23 Last Liquid Time 22:00 Last Solid Date 06/28/23 Last Solid Time 18:00 Social Alcohol (Social) and Tobacco 0.5-1 pack(s) per day Exam alert, oriented x 3 and regular rate & rhythm Diminished BBS Airway Submandibular: within normal limits Cervical ROM: within normal limits Mallampati: Class III Dentition: false History/ROS No significant history except as noted and No significant complaints Pulmonary Chronic Obstructive Pulmonary Disease, Cough and Exertional Dyspnea Wears 3L O2 all the time CV/HEM None reported None reported Hepatic None reported GI Gastroesophageal Reflux Disease Metabolic None reported Musc/skel Lower Back Pain and Osteoarthritis/DJD Neuropsych Anxiety and Depression Anesthetic Plan ASA status: 3 Anesthesia: Anesthesia Evaluation, General and MAC Risk of > 500 ml blood loss (7ml/kg in children): No Medications/Allergies Home Medications Medication Instructions Recorded Confirmed Last Taken Type albuterol sulfate 2.5 mg/3 mL 2.5 mg inhalation TID 09/22/22 06/28/23 06/29/23 History (0.083 %) solution for nebulization albuterol sulfate 90 mcg/actuation 2 puff inhalation DAILY 09/22/22 06/28/23 06/30/23 History aerosol inhaler cetirizine 10 mg tablet 10 mg PO DAILY PRN allergies 09/22/22 06/28/23 06/29/23 History duloxetine 30 mg capsule,delayed 30 mg PO DAILY 09/22/22 06/28/23 06/29/23 History release (Cymbalta) fluticasone fur. 100 mcg-umeclid 1 inh inhalation DAILY 09/22/22 06/28/23 06/29/23 History 62.5 mcg-vilant 25 mcg inhalat.powder (Trelegy Ellipta) calcium carbonate 600 mg-vitamin 1 tab PO BID 10/22/22 06/28/23 06/29/23 History D3 5 mcg (200 unit) tablet pantoprazole 40 mg tablet,delayed 40 - 80 mg PO DAILY PRN Acid Reflux 04/25/23 06/28/23 06/29/23 History release Allergies Allergy/AdvReac Type Severity Reaction Status Date / Time tetracycline Allergy ALGY-Anaphy Verified 04/25/23 11:56 laxis Current Medications Generic Name Dose Route Start Last Admin Trade Name Freq PRN Reason Stop Dose Admin Sodium Chloride 1,000 mls @ 30 mls/hr 06/30/23 09:15 06/30/23 09:29 Sodium Chloride 0.9% IV 07/01/23 09:14 30 mls/hr .Q24H CITLALI Administration PFSH Anesthesia Medical History Anemia COPD (chronic obstructive pulmonary disease) Hypertension Hypothyroidism Surgical History History of laparoscopic cholecystectomy History of lumpectomy History of tonsillectomy and adenoidectomy History of tubal ligation Data Anesthesia Cardiac Studies: No Data to Display
--- NOTE | 2023-06-30 11:06 | PM.HP ---
Providers/Chief Complaint Primary Care Provider: Jena Adamson Chief Complaint: D12.8 History of Present Illness Ekaterina Doe is a 58 year old female Review of Systems General: Reports: 10 or more systems reviewed and unremarkable except in HPI and below Medications/Allergies Home Medications Medication Instructions Recorded Confirmed Last Taken Type albuterol sulfate 2.5 mg/3 mL 2.5 mg inhalation TID 09/22/22 06/28/23 06/29/23 History (0.083 %) solution for nebulization albuterol sulfate 90 mcg/actuation 2 puff inhalation DAILY 09/22/22 06/28/23 06/30/23 History aerosol inhaler cetirizine 10 mg tablet 10 mg PO DAILY PRN allergies 09/22/22 06/28/23 06/29/23 History duloxetine 30 mg capsule,delayed 30 mg PO DAILY 09/22/22 06/28/23 06/29/23 History release (Cymbalta) fluticasone fur. 100 mcg-umeclid 1 inh inhalation DAILY 09/22/22 06/28/23 06/29/23 History 62.5 mcg-vilant 25 mcg inhalat.powder (Trelegy Ellipta) calcium carbonate 600 mg-vitamin 1 tab PO BID 10/22/22 06/28/23 06/29/23 History D3 5 mcg (200 unit) tablet pantoprazole 40 mg tablet,delayed 40 - 80 mg PO DAILY PRN Acid Reflux 04/25/23 06/28/23 06/29/23 History release Allergies Allergy/AdvReac Type Severity Reaction Status Date / Time tetracycline Allergy ALGY-Anaphy Verified 04/25/23 11:56 laxis PFSH Acute PFSH: Medical History Anemia COPD (chronic obstructive pulmonary disease) Hypertension Hypothyroidism Surgical History History of laparoscopic cholecystectomy History of lumpectomy History of tonsillectomy and adenoidectomy History of tubal ligation Vitals/I&O/Wt Last Vital Signs Temp 97.9 F 06/30/23 09:24 Pulse 89 06/30/23 09:24 Resp 20 H 06/30/23 09:24 BP 105/78 06/30/23 09:24 Pulse Ox 97 06/30/23 09:24 O2 Del Method Nasal Cannula 06/30/23 09:24 O2 Flow Rate 3 06/30/23 09:24 Weight last 48 hrs Weight 130 lb A&P Assessment and plan (1) Tubulovillous adenoma of rectum: Recent history of high-grade dysplasia and a rectal polyp Plan Colonoscopy Attestations Medical Necessity Statement*: Home Coding Level of Care Code Acute Code for Chg Fwd Diagnoses Tubulovillous adenoma of rectum D12.8
[2023-06-30 11:37] VITALS: BP 108/80; PULSE 73; RESP 18; TEMP 36.1; O2SAT 96
[2023-06-30 11:49] VITALS: BP 104/76; PULSE 66; RESP 16; O2SAT 100
--- NOTE | 2023-06-30 15:56 | ANE.PACU2 ---
Inpatient post-anesthesia follow up: Airway intact: Yes Vital signs: Temperature 97.0 F Pulse Rate 66 Respiratory Rate 16 Blood Pressure 104/76 Pulse Oximetry 100 Oxygen Delivery Me thod Nasal Cannula Oxygen Flow Rate 3 Fraction of Inspir ed Oxygen Hydration adequate: Yes Nausea and vomiting: No Pain level: 2 Mental status: Baseline
== END 2023-06-30 12:00 | disposition home or self-care (01) ==
PROVIDERS: PCP Family Medicine; Visit Provider Surgery
PROC: 0DJD8ZZ Inspection of Lower Intestinal Tract, Via Natural or Artificial Opening Endoscopic (ICD-10-PCS; CPT 45378; principal; 2023-06-30 09:45)
DX: Z12.11 Encounter for screening for malignant neoplasm of colon (principal); K21.9 Gastro-esophageal reflux disease without esophagitis; D12.8 Benign neoplasm of rectum; J44.9 Chronic obstructive pulmonary disease, unspecified; Z99.81 Dependence on supplemental oxygen; I10 Essential (primary) hypertension; E03.9 Hypothyroidism, unspecified
CPT/HCPCS: 45385; 88305; J2704; J7030

== ENCOUNTER → 2023-08-03 08:52 | Outpatient (BNVA) | payer MEDICARE, SELFPAY | PROVIDERS: PCP Family Medicine; Visit Provider Surgery | DX: Z09 Encounter for follow-up examination after completed treatment for conditions other than malignant neoplasm (principal) | CPT/HCPCS: 99213 ==